=== PATIENT | male | born 1970 | race Caucasian/White ===

== ENCOUNTER 2019-11-15 09:02 | Emergency (ER) | payer OTHER ==
[~2019-11-15] VITALS: Ht 195.6 cm; Wt 172.4 kg
[~2019-11-15 09:02] MED LIST: ALBU90OI INH; AMOX500 PO; AZIT250 PO; CEPH500 PO; CODGUAEL PO; CYCL10 PO; HYDACE5 PO; NAPR500 PO; NAPR550 PO; OXYACE5T PO; RXCODGUASY PO; SULTRIDS PO
[2019-11-15] MEDS ORDERED: Carvedilol25 MG PO (09:23)
[2019-11-15] MEDS ORDERED: TORSE20 (09:23)
[2019-11-15] MEDS ORDERED: LISINOPRIL TAB 20M (09:24)
[2019-11-15 10:33] LABS: BASOPHILS ABSOLUTE AUTO 0.02 K/mm3 (0.00-0.23); BASOPHILS PERCENT AUTO 0 % (0-2); EOSINOPHILS ABSOLUTE AUTO 0.25 K/mm3 (0.00-0.68); EOSINOPHILS PERCENT AUTO 4 % (0-6); Hemoglobin 14.5 g/dL (13.5-17.5); IMMATURE GRAN ABSOLUTE AUTO 0.03 K/mm3 (0.00-0.10); IMMATURE GRAN PERCENT AUTO 0 % (0-1); LYMPHOCYTES ABSOLUTE AUTO 1.14 K/mm3 (0.84-5.20); LYMPHOCYTES PERCENT AUTO 16 % (21-46); MONOCYTES ABSOLUTE AUTO 0.87 K/mm3 (0.16-1.47); MONOCYTES PERCENT AUTO 12 % (4-13); Mean Corpuscular HGB Conc 31.5 g/dL (31.5-36.5); Mean Corpuscular Volume 99 fL (80-100); Mean Platelet Volume 11.2 fL (9.1-12.4); NEUTROPHILS ABSOLUTE AUTO 4.87 K/mm3 (1.96-9.15); NEUTROPHILS PERCENT AUTO 68 % (41-73); Platelet Count 126 K/mm3 (150-400); RDW Coefficient Variation 15.2 % (11.7-14.2); RDW Standard Deviation 54.9 fL (35.1-46.3); Red Blood Cell Count 4.67 M/mm3 (4.30-5.90); White Blood Cell Count 7.18 K/mm3 (4.00-11.30)
[2019-11-15 10:59] LABS: Alanine Aminotransfer (ALT/SGP 21 U/L (12-78); Albumin, Blood 3.4 g/dL (3.4-5.0); Albumin/Globulin Ratio 0.8 (0.8-1.8); Alk Phos 131 U/L (50-136); Anion Gap 4 mmol/L (6-16); Aspartate Aminotrans (AST/SGOT 27 U/L (12-37); Bilirubin, Total 2.1 mg/dL (0.1-1.0); Blood Urea Nitrogen 15 mg/dL (8-24); Bun/Creatinine Ratio 12.9 (12.0-20.0); CO2, Blood 34 mmol/L (21-32); Calcium, Blood 8.9 mg/dL (8.5-10.1); Chloride, Blood 102 mmol/L (98-108); Creatinine, Blood 1.16 mg/dL (0.60-1.20); Globulin, Blood 4.5 g/dL (2.2-4.0); Glomerular Filtration Rate >60 (60-); Glucose, Blood 113 mg/dL (70-99); Potassium, Blood 3.2 mmol/L (3.5-5.5); Sodium, Blood 140 mmol/L (136-145); Total Protein, Blood 7.9 g/dL (6.4-8.2)
[2019-11-15] MEDS ORDERED: Monodox100 MG PO (11:34)
== END 2019-11-15 12:53 | disposition home or self-care (01) ==
LOC: ER 09:02
PROVIDERS: Physician Assistant
DX: L03.116 Cellulitis of left lower limb (principal); F17.200 Nicotine dependence, unspecified, uncomplicated
CPT/HCPCS: 36415; 80053; 85025; 93971; 99283-25

== ENCOUNTER 2020-01-31 21:31 | Observation (INO) | payer OTHER ==
[~2020-01-31] VITALS: Ht 198.1 cm; Wt 203.8 kg
[~2020-01-31 21:31] MED LIST changes: +Carvedilol25 MG PO; +LISINOPRIL TAB 20M; +Monodox100 MG PO; +TORSE20
[2020-01-31] MEDS ORDERED: Aspir 8181 MG PO (21:50)
[2020-01-31 22:41] LABS: BASOPHILS ABSOLUTE AUTO 0.02 K/mm3 (0.00-0.23); BASOPHILS PERCENT AUTO 0 % (0-2); EOSINOPHILS ABSOLUTE AUTO 0.19 K/mm3 (0.00-0.68); EOSINOPHILS PERCENT AUTO 3 % (0-6); Hematocrit 45.4 % (37.0-53.0); Hemoglobin 14.4 g/dL (13.5-17.5); IMMATURE GRAN ABSOLUTE AUTO 0.01 K/mm3 (0.00-0.10); IMMATURE GRAN PERCENT AUTO 0 % (0-1); LYMPHOCYTES ABSOLUTE AUTO 0.89 K/mm3 (0.84-5.20); LYMPHOCYTES PERCENT AUTO 13 % (21-46); MONOCYTES ABSOLUTE AUTO 0.76 K/mm3 (0.16-1.47); MONOCYTES PERCENT AUTO 11 % (4-13); Mean Corpuscular HGB 31.3 pg (26.0-34.0); Mean Corpuscular HGB Conc 31.7 g/dL (31.5-36.5); Mean Corpuscular Volume 99 fL (80-100); Mean Platelet Volume 11.2 fL (9.1-12.4); NEUTROPHILS ABSOLUTE AUTO 5.09 K/mm3 (1.96-9.15); NEUTROPHILS PERCENT AUTO 73 % (41-73); Platelet Count 157 K/mm3 (150-400); RDW Coefficient Variation 15.4 % (11.7-14.2); RDW Standard Deviation 56.1 fL (35.1-46.3); White Blood Cell Count 6.96 K/mm3 (4.00-11.30)
[2020-01-31 23:04] LABS: Alanine Aminotransfer (ALT/SGP 14 U/L (12-78); Albumin, Blood 3.1 g/dL (3.4-5.0); Albumin/Globulin Ratio 0.7 (0.8-1.8); Alk Phos 102 U/L (50-136); Anion Gap 5 mmol/L (6-16); Aspartate Aminotrans (AST/SGOT 19 U/L (12-37); Bilirubin, Total 2.1 mg/dL (0.1-1.0); Blood Urea Nitrogen 13 mg/dL (8-24); Bun/Creatinine Ratio 12.5 (12.0-20.0); CO2, Blood 28 mmol/L (21-32); Calcium, Blood 8.4 mg/dL (8.5-10.1); Chloride, Blood 107 mmol/L (98-108); Creatinine, Blood 1.04 mg/dL (0.60-1.20); Globulin, Blood 4.3 g/dL (2.2-4.0); Glomerular Filtration Rate >60 (60-); Glucose, Blood 113 mg/dL (70-99); Potassium, Blood 3.8 mmol/L (3.5-5.5); Sodium, Blood 140 mmol/L (136-145); Total Protein, Blood 7.4 g/dL (6.4-8.2); Troponin I 0.029 ng/mL (0.000-0.040)
[2020-02-01] MEDS ORDERED: TORSE20 PO (01:05)
[2020-02-01] MEDS ORDERED: LISI20 PO (01:06)
[2020-02-01 05:05] LABS: Anion Gap 5 mmol/L (6-16); Blood Urea Nitrogen 14 mg/dL (8-24); CO2, Blood 31 mmol/L (21-32); Calcium, Blood 8.4 mg/dL (8.5-10.1); Chloride, Blood 104 mmol/L (98-108); Creatinine, Blood 1.08 mg/dL (0.60-1.20); Glomerular Filtration Rate >60 (60-); Glucose, Blood 123 mg/dL (70-99); Potassium, Blood 3.4 mmol/L (3.5-5.5); Sodium, Blood 140 mmol/L (136-145)
--- NOTE | 2020-02-01 06:17 | NUR ---
SHIFT SUMMARY PT WAS A NEW ADMIT DURING THE NIGHT, ARRIVING ON THE FLOOR 0031. HE WAS ADMITTED FOR FLUID OVERLOAD AFTER NOT TAKING HIS REGULAR MEDICATIONS FOR 10 DAYS WHILE HUNTING. HE IS A&O X 4, ABLE TO AMBULATE INDEPENDENTLY. HE WAS MEDIATED FOR CHRONIC NECK PAIN WITH PRN TYLENOL. NO COMPLAINTS OF ACUTE NAUSEA, THOUGH PT DID REPORT INCREASED DYSPNEA WITH EXERTION. VITAL SIGNS STABLE. NO OTHER ACUTE CHANGES IN PT CONDITION NOTED. WILL CONTINUE TO MONITOR AND TREAT PER EMAR UNTIL HAND OFF TO DAY SHIFT RN.
--- NOTE | 2020-02-01 12:28 | NUR ---
DISCHARGE NOTE-PT WAS GIVEN VERBAL AND WRITTEN DISCHARGE INSTRUCTIONS AND ACKNOWLEDGED UNDERSTANDING OF THEM. PT MEDS FAXED TO [facility] PER PT REQUEST AND HIS FOLLOW UP APPOINTMENT WAS SCHEDULED BY THE RN FOR 10-15-20 AT 1520. PT AWARE OF THE APPOINTMENT TIME. PT AWAITING HIS COUSIN THAT IS PICKING HIM UP. PT WANTS A SHOWER PRIOR TO DISCHARGE, AFTER HE EATS HIS LUNCH. [employer] SETTING UP FOR A SHOWER NOW.
== END 2020-02-01 14:49 | disposition home or self-care (01) ==
LOC: ER 21:31 → MEDS 21:32 → ENPENDDIS 02-01 10:48 → MEDS 02-01 14:49
PROVIDERS: Physician Assistant; ADMIT Hospitalist
DX: I11.0 Hypertensive heart disease with heart failure (principal); I50.23 Acute on chronic systolic (congestive) heart failure; I42.9 Cardiomyopathy, unspecified; J44.9 Chronic obstructive pulmonary disease, unspecified; E03.9 Hypothyroidism, unspecified; F17.210 Nicotine dependence, cigarettes, uncomplicated; E11.9 Type 2 diabetes mellitus without complications; E66.01 Morbid (severe) obesity due to excess calories; Z68.41 Body mass index [BMI] 40.0-44.9, adult; Z79.82 Long term (current) use of aspirin; Z79.899 Other long term (current) drug therapy; Z23 Encounter for immunization
CPT/HCPCS: 36415; 71045; 80048; 80053; 83880; 84484; 85025; 93005; 93010; 96374; 96376; 99285-25; A9270; G0008; G0378; Q2038